=== PATIENT | male | born 1940 | race Caucasian/White ===

== ENCOUNTER → 2016-09-27 | Day surgery (SDC) | payer OTHER, MEDICARE ==
[~2016-09-27] VITALS: Ht 170.2 cm; Wt 79.4 kg
[~2016-09-27] MED LIST: ASPIR 8181 MG PO; ASPIRIN EC325 MG PO; ASPIRIN EC81 M1 PO; COZAAR 100MG T100 MG PO; KEFLEX500 MG PO; LIPITOR80 M1 PO; METOPROLOL TART25 M1 PO; NORVASC 2.5 MG2.5 MG PO; PERCOCET 325 MG1 TA2 PO; PROBIOTIC FORMU1 CA1 PO; PROTONIX 40MG T40 MG PO; VITAB121000 PO; VITAMIN D1000 IU PO
--- NOTE | 2016-09-27 08:54 | Operative Report ---
Operative/Inv Procedure Report Surgery Date: 09/27/16 Name of Procedure: Laparoscopic right inguinal hernia repair Pre-Operative Diagnosis: Right inguinal hernia Post-Operative Diagnosis: Same Estimated Blood Loss: scant Surgeon/Driller'S Offsider: CASEY GLEASON,JOSE ALBERTO Carter/Nohemy BLAIR Anesthesia: general endotracheal tube Implants: Parietex mesh Operative/Procedure Note Note: After consent is brought to the operating room laid supine. Gen. anesthesia was obtained and his abdomen was prepped and draped. The skin in the periumbilical region was after local anesthesia. Transverse incision was made sharply. We dissected down to the rectus fascia on the right side. It was incised transversely and stay sutures placed. The dissecting balloon was placed down level of pubis and inflated. We immediately visualized small bowel and therefore extracted the balloon. I reinspected the tract and noted that we had gone through both sides of the fascia. Therefore we peeled one layer away and were able to get into the preperitoneal space in place another balloon down level of pubis. The balloon was then inflated under direct vision the camera then deflated and replaced a blunt Gutiérrez port. Gas was instilled. 2, 5 mm ports are placed in the in the infraumbilical midline after local anesthesia was instilled and under direct vision the camera. He's placed in Trendelenburg. We began or dissection at the pubis and delineated Sp's ligament. There is a small direct hernia. Within came laterally and developed the iliopubic tract. The cord structures were circumferentially dissected. There was a moderate sized cord lipoma which was extracted from the indirect space. A right-sided Parietex keyhole mesh was then marked for orientation and placed in the cavity. It was placed around the cord structures re-create the internal ring and cover the femoral indirect spaces. Once were happy with the placement of mesh the gas was allowed to escape on maintaining proper orientation of it. The fascia was enclosed 0 Vicryl suture. Skin incisions closed with 4-0 Vicryl. Steri-Strips and sterile dressing applied. Sponge and needle counts are correct Findings: Nash CC: MIKO GLEASON,VON Mcadams
== END ==
LOC: STS 01:42
DX: K40.90 Unilateral inguinal hernia, without obstruction or gangrene, not specified as recurrent (principal); I10 Essential (primary) hypertension; E78.00 Pure hypercholesterolemia, unspecified; Z87.891 Personal history of nicotine dependence
CPT/HCPCS: C1781; C9399; J0131; J0690; J1100; J2250; J2405

== ENCOUNTER 2018-01-14 11:13 | Emergency (ER) | payer OTHER, MEDICARE ==
[~2018-01-14] VITALS: Ht 172.7 cm; Wt 77.1 kg
[~2018-01-14 11:13] MED LIST changes: -COZAAR 100MG T100 MG PO; +COZAAR100 M1 PO; +LIPITOR40 M1 PO; -LIPITOR80 M1 PO; -NORVASC 2.5 MG2.5 MG PO; +NORVASC2.5 M1 PO; -PERCOCET 325 MG1 TA2 PO; +PERCOCET 5-3251 EACH PO; +PROBIOTIC FORM1 EACH PO; -PROBIOTIC FORMU1 CA1 PO; -PROTONIX 40MG T40 MG PO; +PROTONIX40 M3 PO; -VITAB121000 PO; +VITAMIN B-121000 MC3 PO; -VITAMIN D1000 IU PO; +VITAMIN D31000 UNI2 PO
--- NOTE | 2018-01-14 12:00 | ED UPPER/LOWER EXTREMITY COMPL ---
History of Present Illness General Chief Complaint: Laceration Procedure Stated Complaint: LAC TO LEG Source: patient Exam Limitations: no limitations Vital Signs & Intake/Output Vital Signs & Intake/Output Vital Signs Date Time Temp Pulse Resp B/P B/P Pulse O2 O2 Flow FiO2 Mean Ox Delivery Rate 01/14 1507 97.0 84 18 142/83 96 Room Air Room Air 01/14 1122 98.5 95 20 163/90 96 Room Air Allergies Coded Allergies: Fish Containing Products (FISH PROTEIN - SHOCK 04/08/16) Iodinated Contrast- Oral and IV Dye (Iodinated Contrast Media - IV Dye) (IVP DYE - SHOCK 04/08/16) iodine (SHOCK 04/08/16) strawberry (SHOCK 04/08/16) venom-honey bee (bee venom (honey bee)) (SHOCK 04/08/16) Uncoded Allergies: SPICES (SHOCK 06/07/15) Reconcile Medications Amlodipine (Norvasc) 2.5 MG TABLET 1 TAB PO DAILY BP (Reported) Amoxicillin 500 MG TABLET 1 TAB PO BID LACERATION Aspirin (Ecotrin*) 81 MG TABLET.DR 1 TAB PO QAM HEART/BLOOD (Reported) Atorvastatin Calcium (Lipitor) 40 MG TABLET 1 TAB PO DAILY cholesterol ( Reported) Bacillus Coagulans/Inulin (Probiotic Formula Capsule) 1 BILLION CELL-250 MG CAPSULE 2 CAP PO DAILY GI (Reported) Cholecalciferol (Vitamin D3) 1,000 UNIT TABLET 1 TAB PO DAILY VITAMIN SUPPORT (Reported) Cyanocobalamin (Vitamin B-12) 1,000 MCG TABLET 1 TAB PO DAILY VITAMIN SUPPORT (Reported) Losartan (Cozaar) 100 MG TABLET 1 TAB PO DAILY HEART (Reported) Metoprolol Tartrate 25 MG TABLET 0.5 TAB PO BID HEART/BP (Reported) Oxycodone HCl/Acetaminophen (Percocet 5-325 MG Tablet) 5 MG-325 MG TABLET 1 TAB PO Q4-6 PRN PRN PAIN (Reported) Pantoprazole Sodium (Protonix) 40 MG TABLET.DR 1 TAB PO DAILY GI (Reported) Triage Note: PT TO ER C/C LAC FROM CHAIN SAW TO RIGHT UPPER THIGH, 2 SEPERATE LACS TOTAL LENGTH ABOUT 6 IN. BLEEDING CONTROLLED. LAST TETANUS INJ 2008. DRESSING APPLIED, CLEAN DRY AND INTACT. Triage Nurses Notes Reviewed? yes Onset: Abrupt Duration: constant Timing: single episode today Severity: severe Severity Numbers: 8 HPI: Patient is a 77-year-old male with a past medical history of hypertension and hyperlipidemia who presents emergency room stating that he accidentally struck the inner part of his right upper leg with a chain saw resulting IN A laceration, bleeding WAS CONTRolled prior to arrival. Tetanus is unknown. (Angel Del Cid) Past History Travel History Traveled to [place] past 21 day No Medical History Any Pertinent Medical History? see below for history Neurological: NONE EENT: NONE Cardiovascular: hypertension, hyperlipidemia Respiratory: bronchitis Gastrointestinal: GERD Hepatic: NONE Renal: NONE Musculoskeletal: chronic back pain, fracture Psychiatric: NONE Endocrine: NONE Blood Disorders: NONE Cancer(s): NONE FAMILY DENTIST/Reproductive: NONE History of MRSA: No History of VRE: No History of CDIFF: No Pneumonia Vaccine: 03/31/09 Surgical History Surgical History: R.KNEE REPLACEMENT PARTIAL L.KNEE REPL. SPINAL FUSSION C4-C5 CARDIAC CATHX2 Psychosocial History Who do you live with Significant Other What is your primary language [place] Tobacco Use: Quit >30 days ago Family History Hx Contributory? No (Angel Del Cid) Review of Systems Review of Systems Constitutional: Reports: no symptoms. EENTM: Reports: no symptoms. Respiratory: Reports: no symptoms. Cardiovascular: Reports: no symptoms. Gastrointestinal/Abdominal: Reports: no symptoms. Genitourinary: Reports: no symptoms. Musculoskeletal: Reports: see HPI. Skin: Reports: see HPI. Neurological/Psychological: Reports: no symptoms. Hematologic/Endocrine: Reports: see HPI. Immunological: Reports: no symptoms. All Other Systems: Reviewed and Negative (Angel Del Cid) Physical Exam Physical Exam General Appearance: comfortable, mild distress Head: atraumatic Eyes: Bilateral: normal appearance. Ears, Nose, Throat: hearing grossly normal Neck: normal inspection Cardiovascular/Respiratory: no respiratory distress Neurologic/Tendon: normal sensation, normal motor functions, normal tendon functions, responds to pain Skin: normal color, warm/dry Diagram Legs Front/Back 1) Noted times 2 subcutaneous linear 6 cm lacerations with no active bleeding full resisted range of motion with knee extension and flexion and hip flexion. No signs of tendon deficit no exposed bone no exposed tendon (Angel Del Cid) Progress Differential Diagnosis: arterial insufficiency, compartment syndrome, contusion, dislocation, DVT, fracture, gout, septic arthritis, sprain, tendon injury Plan of Care: Orders Procedure Date/time Status XRY-FEMUR, 2 VIEWS RIGHT 01/14 1210 Active No concerns of tendon deficit on exam, x-rays resulted no concerns of foreign body nor fracture, Initially using sterile technique of Betadine I then used approximately 15 mL of 1% lidocaine to the laceration sites of the right upper leg. Then using 1 L of sterile water I irrigated the wounds Then I proceeded with chlorhexidine scrub to the laceration sites as well. Been using #6 in total 4-0 absorbable traumatic sutures to grossly marginate the edges. Then I used in total #16, 4-0 sutures in which margins were revised. I applied bacitracin Telfa and Malcolm wrap patient tolerated well patient had normal steady gait on discharge. Patient was offered prescriptions of pain medication however declined in the emergency room. Diagnostic Imaging: Viewed by Me: Radiology Read. Radiology Impression: no fracture Comments: PATIENT: SARAH GUERRERO PRESENT AGE: 77 PATIENT ACCOUNT NO: [id number] : 38 LOCATION: [facility] ORDERING PHYSICIAN: Angel BLAIR SERVICE DATE: 01/14/18 EXAM TYPE: RAD - XRY-FEMUR, 2 VIEWS RIGHT EXAMINATION: XR FEMUR, RIGHT CLINICAL INFORMATION: Laceration of mid right thigh with chain saw. COMPARISON: None TECHNIQUE: AP and lateral views of the right femur were obtained. FINDINGS: There is an obliquely oriented lucency from laceration at the medial aspect of the waw-cn-xyqbsr thigh without radiopaque foreign body. No overt evidence of deep extension of the tissue laceration into the underlying musculature, but assessment for this is limited on radiographs. The femur is intact. The alignment is normal at the hip and knee. There is mild osteoarthrosis of the hip. At the knee, the total knee arthroplasty components exhibit satisfactory position and alignment. IMPRESSION: 1. Soft tissue laceration in the medial aspect of the got-nl-zqqoct right thigh. 2. No acute osseous injury or radiopaque foreign body. DICTATED BY: Vic Chavez MD DATE/TIME DICTATED:01/14/181305 MOLD POLISHER:GISSELLE (Amira BLAIR,Angel) Departure Departure Disposition: HOME OR SELF CARE Condition: Stable Clinical Impression Primary Impression: Laceration of right lower leg Referrals: Abner GLEASON,Mukul Mcadams (PCP/Family) Additional Instructions: As discussed begin the prescription of amoxicillin as directed to prevent infection. prescription is waiting at [facility]. Begin to apply bacitracin to the wound once a day and change with the extra bandages and dressings provided to YOU IN the emergency room, keep area dry and clean as you can. If you note signs of infection redness, pain, swelling, discharge return to emergency room. Return to emergency room or follow-up with primary doctor in approximately 10 days for suture removal Begin Tylenol or Motrin for pain and inflammation Departure Forms: Customer Survey General Discharge Information Prescriptions: Current Visit Scripts Amoxicillin 1 TAB PO BID #14 TAB (Angel Del Cid) PA/TYPIST Co-Sign Statement Statement: ED Attending supervision documentation- [x] I saw and evaluated the patient. I have also reviewed all the pertinent lab results and diagnostic results. I agree with the findings and the plan of care as documented in the PA's/TYPIST's documentation. [] I have reviewed the ED Record and agree with the PA's/TYPIST's documentation. [] Additions or exceptions (if any) to the PAs/TYPIST's note and plan are summarized below: [] (Rogelio Ku DO
[2018-01-14] MEDS ORDERED: AMOXICILLIN500 M3 PO (12:57)
--- NOTE | 2018-01-14 13:13 | RADIOLOGY REPORT ---
EXAMINATION: XR FEMUR, RIGHT CLINICAL INFORMATION: Laceration of mid right thigh with chain saw. COMPARISON: None TECHNIQUE: AP and lateral views of the right femur were obtained. FINDINGS: There is an obliquely oriented lucency from laceration at the medial aspect of the vwt-wg-wbkdtz thigh without radiopaque foreign body. No overt evidence of deep extension of the tissue laceration into the underlying musculature, but assessment for this is limited on radiographs. The femur is intact. The alignment is normal at the hip and knee. There is mild osteoarthrosis of the hip. At the knee, the total knee arthroplasty components exhibit satisfactory position and alignment. IMPRESSION: 1. Soft tissue laceration in the medial aspect of the hxe-rs-jampks right thigh. 2. No acute osseous injury or radiopaque foreign body.
[2018-01-14 15:07] VITALS: BP 142/83
== END 2018-01-14 15:08 ==
LOC: ERH 11:13
DX: S71.111A Laceration without foreign body, right thigh, initial encounter (principal); W29.3XXA Contact with powered garden and outdoor hand tools and machinery, initial encounter; Y93.9 Activity, unspecified; Y92.9 Unspecified place or not applicable
CPT/HCPCS: 73552; 90471; 90714; 96374; J2001